=== PATIENT | male | born 1955 | race Caucasian/White ===

== ENCOUNTER 2022-11-30 13:31 | Inpatient (IN) | payer OTHER ==
[~2022-11-30] VITALS: Ht 175.3 cm; Wt 117.5 kg
[2022-11-30] MEDS ORDERED: NITROGLYCERIN 0.4 MG SL TAB SL ONE (13:45)
[2022-11-30] MEDS ORDERED: SODIUM CHLORIDE 0.9% 500 ML IV ONE (13:45)
[2022-11-30] MEDS ORDERED: ASPirin 325 MG TAB PO ONE (13:45)
[2022-11-30 13:54] LABS: Basophils # (auto) 0.1 10 ^3/uL (0-0.2); Basophils % (auto) 0.9 % (0.0-2.0); Eosinophils # (auto) 0.2 10 ^3/uL (0-0.8); Eosinophils % (auto) 1.9 % (0.0-7.0); Hematocrit 45.7 % (41.0-53.0); Hemoglobin 15.4 g/dL (13.5-17.5); Lymphocytes # (auto) 2.4 10 ^3/uL (0.4-5.4); Mean Corpuscular Hemoglobin 31.8 pg (28.0-32.0); Mean Corpuscular Hgb Conc. 33.8 g/dL (32.0-36.0); Mean Corpuscular Volume 94.2 fL (80.0-100.0); Monocytes # (auto) 0.9 10 ^3/uL (0-1.3); Monocytes % (auto) 8.7 % (0.0-12.0); Neutrophils # (auto) 6.9 10 ^3/uL (1.6-8.6); Neutrophils % (auto) 65.5 % (37.0-80.0); Nucleated Red Blood Cells % 0.1 %; Red Blood Cells 4.85 10^6/uL (4.5-5.90); White Blood Cell 10.5 10^3/uL (4.4-10.8)
[2022-11-30 14:07] LABS: INR 0.99 (0.9-1.15); Partial Thromboplastin Time 30.2 sec (24.6-33.4)
[2022-11-30 14:11] LABS: Urine Bacteria NONE SEEN /hpf (None Seen); Urine Blood Negative /uL (Negative); Urine Mucus FEW (None Seen); Urine Specific Gravity 1.029 (1.001-1.035); Urine WBC 2 /hpf (0 - 3)
[2022-11-30 14:20] LABS: Albumin 3.1 g/dL (3.4-5.0); BUN/Creatinine Ratio 17.6; Calcium 8.4 mg/dL (8.5-10.1); Potassium 3.8 mmol/L (3.5-5.1); Total Protein 6.9 g/dL (6.4-8.2)
[2022-11-30 14:28] LABS: Bilirubin, Total 0.6 mg/dL (0.2-1.0)
[2022-11-30] MEDS ORDERED: ACETAMINOPHEN 325 MG TAB PO PRN (17:00)
[2022-11-30] MEDS ORDERED: ONDANSETRON HCL 4 MG/2 ML VIAL IV PRN (17:00)
[2022-11-30] MEDS ORDERED: MORPHINE SULFATE INJ 2 MG/ml SYRG IV PRN ×3 (17:00)
[2022-11-30] MEDS ORDERED: NITROGLYCERIN 0.4 MG SL TAB SL PRN (17:00)
[2022-11-30] MEDS: LISINOPRIL 5 MG TAB PO SCH (18:12)
[2022-11-30] MEDS: METOPROLOL TARTRATE 25 MG TAB PO SCH (23:44)
[2022-11-30] MEDS: ENOXAPARIN SOD 100 MG/1 ML SYRINGE SC SCH (23:47)
[2022-11-30] MEDS: ATORVASTATIN 20 MG TAB PO SCH (23:47)
[2022-12-01 06:14] LABS: INR 0.99 (0.9-1.15); Partial Thromboplastin Time 37.1 sec (24.6-33.4)
[2022-12-01] MEDS: ADENOSINE 100 MG in GIVE UN-DILUTED 0 ML IV ONE ×2 (08:45→09:44)
[2022-12-01] MEDS ORDERED: MET50T PO (10:42)
[2022-12-01] MEDS ORDERED: CHOL500033 PO (10:42)
[2022-12-01] MEDS ORDERED: MELO1TAB56 PO (10:42)
[2022-12-01] MEDS: ASPirin 81 mg TAB PO SCH (10:50)
[2022-12-01] MEDS: METOPROLOL TARTRATE 25 MG TAB PO SCH ×2 (10:54→22:44)
[2022-12-01] MEDS: ENOXAPARIN SOD 100 MG/1 ML SYRINGE SC SCH (10:55)
[2022-12-01 12:20] VITALS: BP 141/80
[2022-12-01] MEDS ORDERED: IOHEXOL 350 MG/ML 100ML IJ ONE (16:00)
[2022-12-01] MEDS ORDERED: HEPARIN DRIP/D5W 100UNITS/ML 250 ML IV SCH (17:15)
[2022-12-01] MEDS ORDERED: HEPARIN SODIUM (PORCINE) 5000 UNITS/ML 1ML VIAL IV ONE (17:15)
[2022-12-01] MEDS: LISINOPRIL 5 MG TAB PO SCH (18:44)
[2022-12-01 18:55] LABS: Partial Thromboplastin Time 33.2 sec (24.6-33.4)
[2022-12-01 22:00] VITALS: BP 111/69
[2022-12-01] MEDS: ATORVASTATIN 20 MG TAB PO SCH (22:43)
[2022-12-02 02:46] LABS: INR 1.02 (0.9-1.15)
[2022-12-02 02:49] LABS: Partial Thromboplastin Time 98.8 sec (24.6-33.4)
[2022-12-02 05:00] VITALS: BP 132/74
[2022-12-02] MEDS: HEPARIN DRIP/D5W 100UNITS/ML 250 ML IV SCH ×2 (05:08→23:18)
[2022-12-02 06:21] LABS: Calcium 8.7 mg/dL (8.5-10.1); Potassium 3.8 mmol/L (3.5-5.1)
[2022-12-02 06:25] LABS: BUN/Creatinine Ratio 12.8
[2022-12-02 06:33] LABS: INR 1.01 (0.9-1.15); Partial Thromboplastin Time 69.7 sec (24.6-33.4)
[2022-12-02] MEDS: ASPirin 81 mg TAB PO SCH (09:42)
[2022-12-02] MEDS: METOPROLOL TARTRATE 25 MG TAB PO SCH ×2 (09:43→23:09)
[2022-12-02 11:31] LABS: INR 1.03 (0.9-1.15); Partial Thromboplastin Time 55.7 sec (24.6-33.4)
[2022-12-02 13:25] VITALS: BP 125/75
[2022-12-02 16:36] VITALS: BP 127/73
[2022-12-02 18:18] LABS: Basophils # (auto) 0.1 10 ^3/uL (0-0.2); Basophils % (auto) 1.2 % (0.0-2.0); Eosinophils # (auto) 0.4 10 ^3/uL (0-0.8); Eosinophils % (auto) 3.8 % (0.0-7.0); Hemoglobin 14.8 g/dL (13.5-17.5); Lymphocytes # (auto) 3.4 10 ^3/uL (0.4-5.4); Lymphocytes % (auto) 32.6 % (10.0-50.0); Mean Corpuscular Hemoglobin 31.3 pg (28.0-32.0); Mean Corpuscular Hgb Conc. 33.6 g/dL (32.0-36.0); Mean Corpuscular Volume 93.4 fL (80.0-100.0); Monocytes # (auto) 0.9 10 ^3/uL (0-1.3); Neutrophils # (auto) 5.5 10 ^3/uL (1.6-8.6); Neutrophils % (auto) 53.4 % (37.0-80.0); Nucleated Red Blood Cells % 0.1 %; Red Blood Cells 4.71 10^6/uL (4.5-5.90); Red Cell Distribution Width 13.8 % (11.8-14.3); White Blood Cell 10.4 10^3/uL (4.4-10.8)
[2022-12-02] MEDS: LISINOPRIL 5 MG TAB PO SCH (18:27)
[2022-12-02 18:36] LABS: INR 0.99 (0.9-1.15); Partial Thromboplastin Time 66.1 sec (24.6-33.4)
[2022-12-02 21:53] VITALS: BP 127/74
[2022-12-02] MEDS: ATORVASTATIN 20 MG TAB PO SCH (23:09)
[2022-12-03 00:56] LABS: INR 0.99 (0.9-1.15); Partial Thromboplastin Time 69.8 sec (24.6-33.4)
[2022-12-03 04:43] VITALS: BP 133/58
[2022-12-03 09:00] VITALS: BP 132/58
[2022-12-03] MEDS: METOPROLOL TARTRATE 25 MG TAB PO SCH ×2 (10:59→22:18)
[2022-12-03] MEDS: ASPirin 81 mg TAB PO SCH (10:59)
[2022-12-03 13:00] VITALS: BP 123/64
[2022-12-03] MEDS: HEPARIN DRIP/D5W 100UNITS/ML 250 ML IV SCH (13:55)
[2022-12-03 17:00] VITALS: BP 124/70
[2022-12-03] MEDS: LISINOPRIL 5 MG TAB PO SCH (18:55)
[2022-12-03 21:57] VITALS: BP 118/63
[2022-12-03] MEDS: ATORVASTATIN 20 MG TAB PO SCH (22:19)
[2022-12-04 04:51] VITALS: BP 115/67
[2022-12-04] MEDS: HEPARIN DRIP/D5W 100UNITS/ML 250 ML IV SCH (05:53)
[2022-12-04 07:56] LABS: INR 1.02 (0.9-1.15)
[2022-12-04 08:05] LABS: Partial Thromboplastin Time 83.1 sec (24.6-33.4)
[2022-12-04] MEDS ORDERED: HEPARIN DRIP/D5W 100UNITS/ML 250 ML IV SCH (09:15)
[2022-12-04] MEDS: ASPirin 81 mg TAB PO SCH (10:23)
[2022-12-04] MEDS: APIXABAN 5 MG TAB PO SCH ×2 (10:23→21:06)
[2022-12-04] MEDS: METOPROLOL TARTRATE 25 MG TAB PO SCH ×2 (10:24→21:06)
[2022-12-04 17:11] VITALS: BP 110/58
[2022-12-04] MEDS: LISINOPRIL 5 MG TAB PO SCH (18:01)
[2022-12-04] MEDS: ATORVASTATIN 20 MG TAB PO SCH (21:06)
[2022-12-04 23:37] VITALS: BP 117/68
[2022-12-05 04:58] VITALS: BP 124/70
[2022-12-05 09:00] VITALS: BP 131/68
[2022-12-05] MEDS: ASPirin 81 mg TAB PO SCH (09:40)
[2022-12-05] MEDS: METOPROLOL TARTRATE 25 MG TAB PO SCH ×2 (09:41→21:06)
[2022-12-05] MEDS: APIXABAN 5 MG TAB PO SCH ×2 (09:41→21:06)
[2022-12-05 13:00] VITALS: BP 131/62
[2022-12-05] MEDS ORDERED: LISI-275 PO (15:44)
[2022-12-05] MEDS ORDERED: MET25T PO (15:44)
[2022-12-05] MEDS ORDERED: ATOR20TA50 PO (15:44)
[2022-12-05] MEDS ORDERED: APIX5TAB PO (15:44)
[2022-12-05 17:00] VITALS: BP 117/68
[2022-12-05] MEDS: LISINOPRIL 5 MG TAB PO SCH (18:10)
[2022-12-05] MEDS: ATORVASTATIN 20 MG TAB PO SCH (21:06)
[2022-12-05 22:00] VITALS: BP 109/56
[2022-12-06 05:00] VITALS: BP 128/66
[2022-12-06 09:00] VITALS: BP 130/68
[2022-12-06] MEDS: METOPROLOL TARTRATE 25 MG TAB PO SCH (09:27)
[2022-12-06] MEDS: APIXABAN 5 MG TAB PO SCH (09:27)
[2022-12-06] MEDS: ASPirin 81 mg TAB PO SCH (09:28)
== END 2022-12-06 13:47 | disposition home or self-care (01) | DRG 280 ==
LOC: ER 13:31 → TELE 16:59 → TELE-E-ADS 12-01 10:27 → TELE-CENTR 12-01 13:47
PROVIDERS: ADMIT Hospitalist; ATTEND Hospitalist
DX: I21.4 Non-ST elevation (NSTEMI) myocardial infarction (principal); I26.02 Saddle embolus of pulmonary artery with acute cor pulmonale; I82.401 Acute embolism and thrombosis of unspecified deep veins of right lower extremity; I10 Essential (primary) hypertension; I25.10 Atherosclerotic heart disease of native coronary artery without angina pectoris; G47.33 Obstructive sleep apnea (adult) (pediatric); E66.01 Morbid (severe) obesity due to excess calories; Z82.49 Family history of ischemic heart disease and other diseases of the circulatory system; Z20.822 Contact with and (suspected) exposure to COVID-19
CPT/HCPCS: 36415; 71045; 71275; 78452; 80048; 80053; 80061; 81001; 83036; 83735; 83880; 84484; 85025; 85610; 85730; 87426; 93005; 93017; 93306; 93970; 96360; 97110; 97116; 97163; 97530; 99291; G0378; J0153

== ENCOUNTER 2023-02-24 13:54 | Emergency (ER) | payer OTHER ==
[~2023-02-24] VITALS: Ht 175.3 cm; Wt 109.0 kg
[~2023-02-24 13:54] MED LIST: APIX5TAB PO; ATOR20TA50 PO; CHOL500033 PO; LISI-275 PO; MET25T PO; MET50T PO
[2023-02-24 14:06] VITALS: BP 121/70
[2023-02-24 14:33] LABS: Basophils # (auto) 0.1 10 ^3/uL (0-0.2); Eosinophils # (auto) 0.3 10 ^3/uL (0-0.8); Eosinophils % (auto) 4.5 % (0.0-7.0); Hematocrit 42.5 % (41.0-53.0); Hemoglobin 14.3 g/dL (13.5-17.5); Lymphocytes # (auto) 2.6 10 ^3/uL (0.4-5.4); Lymphocytes % (auto) 34.2 % (10.0-50.0); Mean Corpuscular Hemoglobin 31.3 pg (28.0-32.0); Mean Corpuscular Hgb Conc. 33.7 g/dL (32.0-36.0); Mean Corpuscular Volume 92.7 fL (80.0-100.0); Monocytes # (auto) 0.6 10 ^3/uL (0-1.3); Monocytes % (auto) 8.6 % (0.0-12.0); Neutrophils # (auto) 3.9 10 ^3/uL (1.6-8.6); Neutrophils % (auto) 51.7 % (37.0-80.0); Red Blood Cells 4.58 10^6/uL (4.5-5.90); Red Cell Distribution Width 14.2 % (11.8-14.3); White Blood Cell 7.5 10^3/uL (4.4-10.8)
[2023-02-24 14:53] LABS: Albumin 3.3 g/dL (3.4-5.0); Potassium 4.6 mmol/L (3.5-5.1)
[2023-02-24 14:56] LABS: BUN/Creatinine Ratio 15.7 (10.0-20.0); Bilirubin, Total 0.4 mg/dL (0.2-1.0); Total Protein 6.9 g/dL (6.4-8.2)
[2023-02-24 15:31] LABS: INR 0.98 (0.9-1.15); Partial Thromboplastin Time 35.2 sec (24.6-33.4)
[2023-02-24] MEDS ORDERED: IOHEXOL 350 MG/ML 100ML IJ ONE (16:12)
[2023-02-24 16:39] LABS: Urine Bacteria NONE SEEN /hpf (None Seen); Urine Blood Negative /uL (Negative); Urine Mucus FEW (None Seen); Urine Specific Gravity 1.014 (1.001-1.035); Urine WBC 3 /hpf (0 - 3)
== END 2023-02-24 17:31 | disposition home or self-care (01) ==
LOC: ER 13:54
DX: R07.89 Other chest pain (principal); R06.02 Shortness of breath; R25.2 Cramp and spasm; M79.662 Pain in left lower leg; I10 Essential (primary) hypertension; Z86.711 Personal history of pulmonary embolism; Z79.01 Long term (current) use of anticoagulants; Z86.718 Personal history of other venous thrombosis and embolism
CPT/HCPCS: 36415; 71046; 71275; 80053; 81001; 83880; 84484; 85025; 85379; 85610; 85730; 93005; 93971; 99285; Q9967

== ENCOUNTER → 2023-03-22 | Outpatient (CLI) | payer OTHER ==
[~2023-03-22] VITALS: Ht 175.3 cm; Wt 104.3 kg
[~2023-03-22] MED LIST changes: +REGADENOSON 0.4 MG/5 ML SYRG IV ONE
[2023-03-22 10:27] VITALS: BP 119/69
== END | disposition home or self-care (01) ==
LOC: XYW 09:34
PROVIDERS: ATTEND Internal Medicine
DX: R07.9 Chest pain, unspecified (principal); I10 Essential (primary) hypertension
CPT/HCPCS: 78452; 93017; 94640; A9500; J2785

== ENCOUNTER 2023-04-22 11:51 | Emergency (ER) | payer OTHER ==
[~2023-04-22] VITALS: Ht 175.3 cm; Wt 104.0 kg
[~2023-04-22 11:51] MED LIST changes: -REGADENOSON 0.4 MG/5 ML SYRG IV ONE
[2023-04-22] MEDS ORDERED: HYDROcodone-ACET 10/325MG TAB PO ONE (13:45)
[2023-04-22 15:42] LABS: Basophils # (auto) 0.1 10 ^3/uL (0-0.2); Basophils % (auto) 1.2 % (0.0-2.0); Eosinophils # (auto) 0.2 10 ^3/uL (0-0.8); Eosinophils % (auto) 2.4 % (0.0-7.0); Hematocrit 45.9 % (41.0-53.0); Hemoglobin 15.5 g/dL (13.5-17.5); Lymphocytes # (auto) 2.2 10 ^3/uL (0.4-5.4); Lymphocytes % (auto) 28.9 % (10.0-50.0); Mean Corpuscular Hemoglobin 31.3 pg (28.0-32.0); Mean Corpuscular Hgb Conc. 33.7 g/dL (32.0-36.0); Mean Corpuscular Volume 92.9 fL (80.0-100.0); Monocytes # (auto) 0.6 10 ^3/uL (0-1.3); Monocytes % (auto) 8.3 % (0.0-12.0); Neutrophils # (auto) 4.6 10 ^3/uL (1.6-8.6); Neutrophils % (auto) 59.2 % (37.0-80.0); Nucleated Red Blood Cells % 0.1 %; Red Blood Cells 4.94 10^6/uL (4.5-5.90); Red Cell Distribution Width 13.9 % (11.8-14.3); White Blood Cell 7.7 10^3/uL (4.4-10.8)
[2023-04-22 15:53] LABS: Albumin 3.4 g/dL (3.4-5.0); Calcium 9.2 mg/dL (8.5-10.1); Potassium 4.5 mmol/L (3.5-5.1)
[2023-04-22 15:58] LABS: BUN/Creatinine Ratio 15.2 (10.0-20.0); Bilirubin, Total 0.5 mg/dL (0.2-1.0); Total Protein 7.8 g/dL (6.4-8.2)
[2023-04-22 17:36] VITALS: BP 107/64; PULSE 65; RESP 18; TEMP 97.3; O2SAT 98
== END 2023-04-22 17:37 | disposition home or self-care (01) ==
LOC: ER 11:51
DX: M79.605 Pain in left leg (principal); I26.99 Other pulmonary embolism without acute cor pulmonale; I10 Essential (primary) hypertension; I25.2 Old myocardial infarction; E78.5 Hyperlipidemia, unspecified; Z79.899 Other long term (current) drug therapy
CPT/HCPCS: 36415; 80053; 85025; 85652; 93971

== ENCOUNTER 2023-07-18 17:40 | Inpatient (IN) | payer OTHER ==
[~2023-07-18] VITALS: Ht 175.3 cm; Wt 106.2 kg
[2023-07-18 18:22] LABS: Basophils # (auto) 0.1 10 ^3/uL (0-0.2); Basophils % (auto) 0.6 % (0.0-2.0); Eosinophils # (auto) 0.1 10 ^3/uL (0-0.8); Eosinophils % (auto) 1.2 % (0.0-7.0); Hematocrit 45.3 % (41.0-53.0); Hemoglobin 15.2 g/dL (13.5-17.5); Lymphocytes # (auto) 1.8 10 ^3/uL (0.4-5.4); Lymphocytes % (auto) 16.4 % (10.0-50.0); Mean Corpuscular Hemoglobin 31.4 pg (28.0-32.0); Mean Corpuscular Hgb Conc. 33.4 g/dL (32.0-36.0); Mean Corpuscular Volume 93.7 fL (80.0-100.0); Monocytes # (auto) 0.7 10 ^3/uL (0-1.3); Monocytes % (auto) 6.6 % (0.0-12.0); Neutrophils # (auto) 8.3 10 ^3/uL (1.6-8.6); Neutrophils % (auto) 75.2 % (37.0-80.0); Red Blood Cells 4.84 10^6/uL (4.5-5.90); Red Cell Distribution Width 14.1 % (11.8-14.3)
[2023-07-18 18:57] LABS: Alanine Aminotransferase 24 U/L (7-40); Albumin 4.4 g/dL (3.2-4.8); Alkaline Phosphatase 114 U/L (46-116); Anion Gap 7 (5-15); Aspartate Aminotransferase 22 U/L (13-40); BUN/Creatinine Ratio 10.2 (10.0-20.0); Bilirubin, Total 0.6 mg/dL (0.2-1.0); Blood Urea Nitrogen 11 mg/dL (9-23); Calcium 9.3 mg/dL (8.5-10.1); Carbon Dioxide 26 mmol/L (20-30); Chloride 103 mmol/L (98-107); Glucose 89 mg/dL (74-106); Potassium 3.8 mmol/L (3.5-5.1); Sodium 136 mmol/L (136-145); Total Protein 7.5 g/dL (5.7-8.2)
[2023-07-19] MEDS ORDERED: ENOXAPARIN SOD 100 MG/1 ML SYRINGE SC ONE (01:15)
[2023-07-19] MEDS ORDERED: ASPirin 325 MG TAB PO ONE (01:15)
[2023-07-19] MEDS ORDERED: ONDANSETRON HCL 4 MG/2 ML VIAL IV PRN (01:30)
[2023-07-19] MEDS ORDERED: ACETAMINOPHEN 325 MG TAB PO PRN (01:30)
[2023-07-19] MEDS ORDERED: DOCUSATE SOD 100 MG CAP PO PRN (01:30)
[2023-07-19] MEDS ORDERED: MORPHINE SULFATE INJ 2 MG/ml SYRG IV PRN ×2 (01:30)
[2023-07-19] MEDS ORDERED: NITROGLYCERIN 0.4 MG SL TAB SL PRN (01:30)
[2023-07-19] MEDS ORDERED: HYDROcodone-ACET 5/325MG TAB PO PRN (01:30)
[2023-07-19 06:00] VITALS: PULSE 70; RESP 16; O2SAT 97
[2023-07-19 06:04] VITALS: PULSE 70; RESP 16; O2SAT 97
[2023-07-19 06:48] LABS: Chloride 104 mmol/L (98-107); Potassium 3.7 mmol/L (3.5-5.1); Sodium 139 mmol/L (136-145)
[2023-07-19 06:49] LABS: Anion Gap 9 (5-15); Carbon Dioxide 26 mmol/L (20-30)
[2023-07-19 06:50] LABS: Calcium 9.5 mg/dL (8.7-10.4)
[2023-07-19 06:54] LABS: BUN/Creatinine Ratio 14.8 (10.0-20.0); Blood Urea Nitrogen 17 mg/dL (9-23); Glucose 86 mg/dL (74-106)
[2023-07-19 07:16] LABS: Basophils # (auto) 0.1 10 ^3/uL (0-0.2); Basophils % (auto) 0.6 % (0.0-2.0); Eosinophils # (auto) 0.2 10 ^3/uL (0-0.8); Hematocrit 44.2 % (41.0-53.0); Hemoglobin 14.8 g/dL (13.5-17.5); Lymphocytes # (auto) 2.9 10 ^3/uL (0.4-5.4); Lymphocytes % (auto) 27.2 % (10.0-50.0); Mean Corpuscular Hemoglobin 31.2 pg (28.0-32.0); Mean Corpuscular Hgb Conc. 33.6 g/dL (32.0-36.0); Mean Corpuscular Volume 93.1 fL (80.0-100.0); Monocytes # (auto) 0.9 10 ^3/uL (0-1.3); Monocytes % (auto) 8.7 % (0.0-12.0); Neutrophils # (auto) 6.6 10 ^3/uL (1.6-8.6); Neutrophils % (auto) 61.5 % (37.0-80.0); Nucleated Red Blood Cells % 0.1 %; Red Blood Cells 4.75 10^6/uL (4.5-5.90); White Blood Cell 10.8 10^3/uL (4.4-10.8)
[2023-07-19] MEDS: ASPirin 81 mg TAB PO SCH (09:41)
[2023-07-19] MEDS ORDERED: PANTOPRAZOLE 40 MG/10 ML VIAL INJ IV SCH (10:00)
[2023-07-19] MEDS ORDERED: METOPROLOL TARTRATE 25 MG TAB PO SCH (10:00)
[2023-07-19] MEDS: ATORVASTATIN 20 MG TAB PO SCH (10:20)
[2023-07-19 18:09] LABS: Urine Bacteria NONE SEEN /hpf (None Seen); Urine Blood Negative /uL (Negative); Urine Clarity Clear (Clear); Urine Color Colorless (Yellow); Urine Mucus FEW (None Seen); Urine Protein, UAD Negative (Negative); Urine Specific Gravity 1.005 (1.001-1.035); Urine Urobilinogen Normal (Negative); Urine WBC 1 /hpf (0 - 3); Urine pH 5.5 (5.0-8.0)
[2023-07-19 19:49] VITALS: O2SAT 96
[2023-07-19 20:00] VITALS: PULSE 68; RESP 17
[2023-07-19 22:00] VITALS: BP 129/75; PULSE 63; RESP 18; TEMP 97.8; O2SAT 93
[2023-07-19] MEDS ORDERED: ENOXAPARIN SOD 40 MG/0.4 ML SYRINGE SC SCH (22:00)
[2023-07-20] VITALS (12 sets, daily range): BP systolic 106–143; BP diastolic 57–83; PULSE 57–79; RESP 12–19; TEMP 36.4; O2SAT 91–95
[2023-07-20 05:29] LABS: Basophils # (auto) 0.1 10 ^3/uL (0-0.2); Eosinophils # (auto) 0.2 10 ^3/uL (0-0.8); Eosinophils % (auto) 3.4 % (0.0-7.0); Hematocrit 40.3 % (41.0-53.0); Hemoglobin 13.4 g/dL (13.5-17.5); Lymphocytes # (auto) 2.5 10 ^3/uL (0.4-5.4); Lymphocytes % (auto) 33.9 % (10.0-50.0); Mean Corpuscular Hemoglobin 31.4 pg (28.0-32.0); Mean Corpuscular Hgb Conc. 33.3 g/dL (32.0-36.0); Mean Corpuscular Volume 94.3 fL (80.0-100.0); Monocytes # (auto) 0.6 10 ^3/uL (0-1.3); Monocytes % (auto) 8.5 % (0.0-12.0); Neutrophils # (auto) 3.9 10 ^3/uL (1.6-8.6); Neutrophils % (auto) 53.2 % (37.0-80.0); Nucleated Red Blood Cells % 0.1 %; Red Blood Cells 4.27 10^6/uL (4.5-5.90); Red Cell Distribution Width 14.4 % (11.8-14.3); White Blood Cell 7.4 10^3/uL (4.4-10.8)
[2023-07-20 05:36] LABS: Chloride 109 mmol/L (98-107); Potassium 4.1 mmol/L (3.5-5.1); Sodium 141 mmol/L (136-145)
[2023-07-20 05:37] LABS: Anion Gap 7 (5-15); Calcium 8.9 mg/dL (8.5-10.1); Carbon Dioxide 25 mmol/L (20-30)
[2023-07-20 05:42] LABS: BUN/Creatinine Ratio 12.2 (10.0-20.0); Blood Urea Nitrogen 12 mg/dL (9-23); Glucose 96 mg/dL (74-106)
[2023-07-20] MEDS: ATORVASTATIN 20 MG TAB PO SCH (10:00)
[2023-07-20] MEDS: ASPirin 81 mg TAB PO SCH (10:00)
[2023-07-20] MEDS ORDERED: VERAPAMIL 2.5MG/ML INJ 2ML VIAL IV ONE (12:18)
[2023-07-20] MEDS ORDERED: HEPARIN SODIUM (PORCINE) 5000 UNITS/ML 1ML VIAL ONE (12:18)
[2023-07-20] MEDS ORDERED: ANGIOMAX 250 MG VIAL IV ONE (12:18)
[2023-07-20] MEDS ORDERED: MIDAZOLAM HCL 2MG/2ML 2ml VIAL (1mg/ml) ONE (12:19)
[2023-07-20] MEDS ORDERED: IODIXANOL 320MG/ML 100ML BTL IV ONE (12:19)
[2023-07-20] MEDS ORDERED: SODIUM CHL 0.9% 0 ML ONE (12:19)
[2023-07-20] MEDS ORDERED: LIDOCAINE 2%HCL (LOCAL ANESTH.) INJ 20ML MDV ONE (12:19)
[2023-07-20] MEDS ORDERED: fentaNYL CITRATE 100 MCG/2 ML VL ONE (12:19)
[2023-07-20 12:56] LABS: INR 1.04 (0.9-1.15); Partial Thromboplastin Time 33.4 SEC (24.5-34.5); Prothrombin Time 10.9 sec (9.3-11.8)
== END 2023-07-20 20:15 | disposition home or self-care (01) | DRG 287 ==
LOC: ER 17:40 → TELE 07-19 01:30 → TELE-WESTW 07-19 18:45
PROVIDERS: ADMIT Nurse Practitioner Family; ATTEND Nurse Practitioner Family
PROC: 4A023N7 Measurement of Cardiac Sampling and Pressure, Left Heart, Percutaneous Approach (ICD-10-PCS; principal; 2023-07-20)
PROC: B211YZZ Fluoroscopy of Multiple Coronary Arteries using Other Contrast (ICD-10-PCS; 2023-07-20)
PROC: B215YZZ Fluoroscopy of Left Heart using Other Contrast (ICD-10-PCS; 2023-07-20)
DX: R07.9 Chest pain, unspecified (principal); I10 Essential (primary) hypertension; E78.5 Hyperlipidemia, unspecified; R94.39 Abnormal result of other cardiovascular function study; R79.89 Other specified abnormal findings of blood chemistry; D72.829 Elevated white blood cell count, unspecified; Z86.711 Personal history of pulmonary embolism; Z86.718 Personal history of other venous thrombosis and embolism; I25.2 Old myocardial infarction; Z79.01 Long term (current) use of anticoagulants; Z82.3 Family history of stroke; Z83.3 Family history of diabetes mellitus
CPT/HCPCS: 36415; 71045; 80048; 80053; 81001; 83880; 84484; 85025; 85610; 85730; 86850; 86900; 86901; 93005; 93306; 93458; 97110; 97116; 97163; 97530; 99152; C9113; G0378; J2250; Q9967

== ENCOUNTER 2023-08-09 08:44 | Emergency (ER) | payer OTHER ==
[~2023-08-09] VITALS: Ht 175.3 cm; Wt 102.6 kg
[2023-08-09 09:00] VITALS: BP 136/81; PULSE 81; RESP 18; TEMP 97.1; O2SAT 96
[2023-08-09] MEDS ORDERED: cefTRIAXone SOD 1,000 MG VL IM ONE (09:30)
[2023-08-09] MEDS ORDERED: LIDOCAINE 1% HCL (LOCAL ANESTH.) INJ 20ML MDV IJ ONE (09:45)
[2023-08-09] MEDS ORDERED: CLIN-203 PO (09:47)
[2023-08-09] MEDS ORDERED: NAPR-746 PO (09:47)
== END 2023-08-09 10:21 | disposition home or self-care (01) ==
LOC: ER 08:44
DX: K04.7 Periapical abscess without sinus (principal); E78.5 Hyperlipidemia, unspecified; I10 Essential (primary) hypertension; I25.2 Old myocardial infarction
CPT/HCPCS: 96372; 99283; J0696; J2001

== ENCOUNTER 2023-10-15 07:01 | Day surgery (SDC) | payer OTHER ==
[~2023-10-15] VITALS: Ht 177.8 cm; Wt 100.2 kg
[2023-10-15] VITALS (7 sets, daily range): BP systolic 112–134; BP diastolic 69–75; PULSE 59–66; RESP 12–17; O2SAT 90–98
[~2023-10-15 07:01] MED LIST changes: +AMOX250C3 PO; -LISI-275 PO; -MET25T PO; -MET50T PO; +NAPR220C PO
[2023-10-15] MEDS ORDERED: ANGIOMAX 250 MG VIAL IV ONE (09:27)
[2023-10-15] MEDS ORDERED: HEPARIN SODIUM (PORCINE) 5000 UNITS/ML 1ML VIAL ONE (09:27)
[2023-10-15] MEDS ORDERED: VERAPAMIL 2.5MG/ML INJ 2ML VIAL IV ONE (09:27)
[2023-10-15] MEDS ORDERED: SODIUM CHL 0.9% 0 ML ONE (09:28)
[2023-10-15] MEDS ORDERED: MIDAZOLAM HCL 2MG/2ML 2ml VIAL (1mg/ml) ONE (09:28)
[2023-10-15] MEDS ORDERED: fentaNYL CITRATE 100 MCG/2 ML VL ONE (09:28)
[2023-10-15] MEDS ORDERED: HEPARIN IN NS 1000Units/500mL 1,500 ML ONE (09:33)
[2023-10-15] MEDS ORDERED: IODIXANOL 320MG/ML 100ML BTL IV ONE (09:33)
[2023-10-15] MEDS ORDERED: LIDOCAINE 2%HCL (LOCAL ANESTH.) INJ 20ML MDV ONE (09:33)
== END 2023-10-15 12:20 | disposition home or self-care (01) ==
LOC: CATH 07:01
PROVIDERS: ATTEND Internal Medicine
DX: R94.39 Abnormal result of other cardiovascular function study (principal); I25.119 Atherosclerotic heart disease of native coronary artery with unspecified angina pectoris; I07.1 Rheumatic tricuspid insufficiency; I10 Essential (primary) hypertension; Z80.9 Family history of malignant neoplasm, unspecified; Z79.899 Other long term (current) drug therapy
CPT/HCPCS: 93458; C1725; C1769; C1894; J1644; J2250; J3010; J7030; Q9967; 99152

== ENCOUNTER 2024-01-31 14:57 | Inpatient (IN) | payer OTHER ==
[~2024-01-31] VITALS: Ht 175.3 cm; Wt 97.7 kg
[2024-01-31 16:10] LABS: Urine Bacteria None Seen /hpf (None Seen)
[2024-01-31 16:18] LABS: Urine Blood Negative /uL (Negative); Urine Clarity Clear (Clear); Urine Color Light-Yellow (Yellow); Urine Protein, UAD Negative (Negative); Urine Specific Gravity 1.026 (1.001-1.035); Urine Urobilinogen Normal (Negative); Urine WBC <1 /hpf (0 - 3); Urine pH 6.5 (5.0-9.0)
[2024-01-31 16:19] LABS: Basophils # (auto) 0.1 10 ^3/uL (0-0.2); Basophils % (auto) 1.1 % (0.0-2.0); Eosinophils # (auto) 0.4 10 ^3/uL (0-0.8); Eosinophils % (auto) 5.3 % (0.0-7.0); Hematocrit 43.3 % (41.0-53.0); Hemoglobin 14.5 g/dL (13.5-17.5); Lymphocytes % (auto) 42.4 % (10.0-50.0); Mean Corpuscular Hemoglobin 31.4 pg (28.0-32.0); Mean Corpuscular Hgb Conc. 33.4 g/dL (32.0-36.0); Monocytes # (auto) 0.8 10 ^3/uL (0-1.3); Monocytes % (auto) 11.3 % (0.0-12.0); Neutrophils # (auto) 2.8 10 ^3/uL (1.6-8.6); Neutrophils % (auto) 39.9 % (37.0-80.0); Nucleated Red Blood Cells % 0.1 %
[2024-01-31] MEDS: ACETAMINOPHEN 500 MG TAB PO ONE (16:28)
[2024-01-31 16:37] LABS: Alanine Aminotransferase 23 U/L (7-40); Albumin 3.9 g/dL (3.2-4.8); Alkaline Phosphatase 83 U/L (46-116); Anion Gap 6 (5-15); Aspartate Aminotransferase 26 U/L (13-40); BUN/Creatinine Ratio 21.4 (10.0-20.0); Blood Urea Nitrogen 22 mg/dL (9-23); Calcium 9.4 mg/dL (8.5-10.1); Carbon Dioxide 27 mmol/L (20-30); Chloride 106 mmol/L (98-107); Glucose 71 mg/dL (74-106); Potassium 4.6 mmol/L (3.5-5.1); Sodium 139 mmol/L (136-145)
[2024-01-31 16:38] LABS: Bilirubin, Total 0.3 mg/dL (0.2-1.0); Total Protein 6.4 g/dL (5.7-8.2)
[2024-01-31 16:58] LABS: Lipase 53 U/L (12-53)
[2024-01-31] MEDS: IOHEXOL 350 MG/ML 100ML IJ ONE (17:23)
[2024-01-31] MEDS ORDERED: ALBUAER3 IN (18:54)
[2024-01-31] MEDS ORDERED: BENZ200C64 PO (18:54)
[2024-01-31] MEDS ORDERED: AMOX875T4 PO (18:54)
[2024-01-31] MEDS ORDERED: DEX4T PO (18:54)
[2024-01-31 19:30] VITALS: PULSE 56; RESP 16; O2SAT 98
[2024-01-31] MEDS ORDERED: MORPHINE SULFATE INJ 2 MG/ml SYRG IV PRN (20:30)
[2024-01-31] MEDS ORDERED: ACETAMINOPHEN 325 MG TAB PO PRN (20:30)
[2024-01-31] MEDS ORDERED: ONDANSETRON HCL 4 MG/2 ML VIAL IV PRN (20:30)
[2024-01-31] MEDS ORDERED: NITROGLYCERIN 0.4 MG SL TAB SL PRN (20:30)
[2024-01-31] MEDS: ASPirin 81 mg TAB PO ONE (21:00)
[2024-01-31] MEDS: HYDROcodone-ACET 5/325MG TAB PO PRN (21:55)
[2024-01-31 23:33] VITALS: BP 158/75; PULSE 57; RESP 18; TEMP 97.5; O2SAT 99
[2024-02-01] VITALS (8 sets, daily range): BP systolic 119–148; BP diastolic 67–75; PULSE 51–82; RESP 16–18; TEMP 97.2–98.1; O2SAT 95–98
[2024-02-01 06:01] LABS: Basophils # (auto) 0.1 10 ^3/uL (0-0.2); Basophils % (auto) 0.8 % (0.0-2.0); Eosinophils # (auto) 0.3 10 ^3/uL (0-0.8); Eosinophils % (auto) 4.6 % (0.0-7.0); Hematocrit 44.5 % (41.0-53.0); Hemoglobin 14.7 g/dL (13.5-17.5); Lymphocytes # (auto) 2.7 10 ^3/uL (0.4-5.4); Lymphocytes % (auto) 38.5 % (10.0-50.0); Mean Corpuscular Hgb Conc. 33.1 g/dL (32.0-36.0); Mean Corpuscular Volume 93.7 fL (80.0-100.0); Monocytes # (auto) 0.7 10 ^3/uL (0-1.3); Monocytes % (auto) 9.9 % (0.0-12.0); Neutrophils # (auto) 3.3 10 ^3/uL (1.6-8.6); Neutrophils % (auto) 46.2 % (37.0-80.0); Nucleated Red Blood Cells % 0.1 %; Red Blood Cells 4.75 10^6/uL (4.5-5.90); White Blood Cell 7.1 10^3/uL (4.4-10.8)
[2024-02-01 06:23] LABS: Chloride 107 mmol/L (98-107); Potassium 3.9 mmol/L (3.5-5.1); Sodium 142 mmol/L (136-145)
[2024-02-01 06:24] LABS: Anion Gap 8 (5-15); Calcium 9.5 mg/dL (8.5-10.1); Carbon Dioxide 27 mmol/L (20-30)
[2024-02-01 06:29] LABS: BUN/Creatinine Ratio 16.3 (10.0-20.0); Blood Urea Nitrogen 17 mg/dL (9-23); Glucose 74 mg/dL (74-106)
[2024-02-01] MEDS: ATORVASTATIN 20 MG TAB PO SCH (08:26)
[2024-02-02 01:00] VITALS: BP 128/68; PULSE 64; RESP 18; TEMP 97.1; O2SAT 96
[2024-02-02 05:00] VITALS: BP 143/80; PULSE 61; RESP 20; TEMP 97.4; O2SAT 94
[2024-02-02 06:02] LABS: Basophils # (auto) 0.1 10 ^3/uL (0-0.2); Basophils % (auto) 0.7 % (0.0-2.0); Chloride 105 mmol/L (98-107); Eosinophils # (auto) 0.4 10 ^3/uL (0-0.8); Eosinophils % (auto) 4.8 % (0.0-7.0); Hematocrit 44.8 % (41.0-53.0); Hemoglobin 14.6 g/dL (13.5-17.5); Lymphocytes # (auto) 2.7 10 ^3/uL (0.4-5.4); Lymphocytes % (auto) 36.3 % (10.0-50.0); Mean Corpuscular Hgb Conc. 32.7 g/dL (32.0-36.0); Mean Corpuscular Volume 94.7 fL (80.0-100.0); Monocytes # (auto) 0.7 10 ^3/uL (0-1.3); Neutrophils # (auto) 3.6 10 ^3/uL (1.6-8.6); Neutrophils % (auto) 48.2 % (37.0-80.0); Potassium 4.3 mmol/L (3.5-5.1); Red Blood Cells 4.73 10^6/uL (4.5-5.90); Red Cell Distribution Width 14.3 % (11.8-14.3); Sodium 139 mmol/L (136-145); White Blood Cell 7.5 10^3/uL (4.4-10.8)
[2024-02-02 06:03] LABS: Anion Gap 7 (5-15); Calcium 9.9 mg/dL (8.5-10.1); Carbon Dioxide 27 mmol/L (20-30)
[2024-02-02 06:08] LABS: Glucose 85 mg/dL (74-106)
[2024-02-02 07:42] LABS: Blood Urea Nitrogen 13 mg/dL (9-23)
[2024-02-02 08:00] VITALS: PULSE 55
[2024-02-02 08:19] VITALS: BP 138/78; PULSE 56; RESP 16; TEMP 98.3; O2SAT 96
[2024-02-02 11:50] VITALS: BP 101/69; PULSE 65; RESP 18; TEMP 98; O2SAT 95
[2024-02-02] MEDS ORDERED: HYDR-4902 PO (16:00)
[2024-02-02 16:44] VITALS: BP 116/65; PULSE 63; RESP 18; TEMP 97.7; O2SAT 93
[2024-02-02] MEDS: HYDROcodone-ACET 10/325MG TAB PO PRN (19:29)
== END 2024-02-02 19:40 | disposition home or self-care (01) | DRG 552 ==
LOC: ER 14:57 → TELE-WESTW 20:32 → TELE 20:32 → TELE-WESTW 23:22
PROVIDERS: ADMIT Nurse Practitioner Family; ATTEND Internal Medicine
DX: M51.37 Other intervertebral disc degeneration, lumbosacral region (principal); I10 Essential (primary) hypertension; E78.5 Hyperlipidemia, unspecified; G89.29 Other chronic pain; I25.10 Atherosclerotic heart disease of native coronary artery without angina pectoris; K59.00 Constipation, unspecified; E66.01 Morbid (severe) obesity due to excess calories; Z79.2 Long term (current) use of antibiotics; Z79.899 Other long term (current) drug therapy; Z79.01 Long term (current) use of anticoagulants; Z83.3 Family history of diabetes mellitus; Z82.3 Family history of stroke; Z80.8 Family history of malignant neoplasm of other organs or systems; Z86.711 Personal history of pulmonary embolism; Z68.31 Body mass index [BMI] 31.0-31.9, adult
CPT/HCPCS: 36415; 71260; 74176; 74177; 80048; 80053; 81001; 83690; 84484; 85025; 93005; 93306; 97110; 97116; 97163; 97530; G0378

== ENCOUNTER 2024-06-26 16:13 | Emergency (ER) | payer OTHER ==
[~2024-06-26] VITALS: Ht 175.3 cm; Wt 100.0 kg
[~2024-06-26 16:13] MED LIST changes: -AMOX250C3 PO; +HYDR-4902 PO
[2024-06-26 17:15] VITALS: BP 128/68; PULSE 1; RESP 16; O2SAT 96
== END 2024-06-26 18:12 | disposition home or self-care (01) ==
LOC: ER 16:13
DX: S80.01XA Contusion of right knee, initial encounter (principal); S80.02XA Contusion of left knee, initial encounter; M25.561 Pain in right knee; M25.562 Pain in left knee; I10 Essential (primary) hypertension; I25.2 Old myocardial infarction; E78.5 Hyperlipidemia, unspecified; Z79.899 Other long term (current) drug therapy; W01.0XXA Fall on same level from slipping, tripping and stumbling without subsequent striking against object, initial encounter; Y93.K1 Activity, walking an animal; Y92.89 Other specified places as the place of occurrence of the external cause; Y99.8 Other external cause status
CPT/HCPCS: 73562